=== PATIENT | male | born 1960 | race African-American/Black ===

== ENCOUNTER 2023-09-01 09:53 | Emergency (ER) | payer OTHER ==
[2023-09-01 10:05] VITALS: TEMP 98.6; BMI 24.6
[2023-09-01] MEDS ORDERED: DEXAMETHASONE 4 MG TABLET (FP) ONE (11:05)
[2023-09-01] MEDS ORDERED: LORATADINE 10 MG TABLET ONE (11:05)
[2023-09-01 11:07] LABS: EPI CELLS 8 /uL (0-25.1); HYALINE CASTS 1 /uL (0-3.1); URINE APPEARANCE CLEAR; URINE BACTERIA 72 /uL (0-1359); URINE BILIRUBIN NEGATIVE (NEGATIVE); URINE COLOR YELLOW; URINE GLUCOSE (UA) NEGATIVE (NEGATIVE); URINE KETONE NEGATIVE (NEGATIVE); URINE LEUK ESTERASE 1+ (NEGATIVE); URINE NITRITE NEGATIVE (NEGATIVE); URINE PROTEIN NEGATIVE (NEGATIVE); URINE RBC 312 /uL (0-23.9); URINE UROBILINOGEN 0.2 mg/dL (0.2-1.0); URINE WBC 111 /uL (0-25.8)
[2023-09-01] MEDS: DEXAMETHASONE 4 MG TABLET (FP) PO ONE (11:10)
[2023-09-01] MEDS: LORATADINE 10 MG TABLET PO ONE (11:10)
[2023-09-01] MEDS ORDERED: CEPHALEXIN MONOHYDRATE 500 MG CAPSULE (UD) ONE (12:55)
[2023-09-01] MEDS: CEPHALEXIN MONOHYDRATE 500 MG CAPSULE (UD) PO ONE (12:59)
[2023-09-01 14:09] VITALS: BP 119/74; PULSE 72; RESP 16
== END 2023-09-01 14:09 | disposition home or self-care (01) ==
LOC: JER 09:53
DX: K13.0 Diseases of lips (principal)
CPT/HCPCS: 81003; 87086; 87186; 99283-25

== ENCOUNTER 2023-12-11 17:32 | Emergency (ER) | payer OTHER ==
[2023-12-11 17:41] VITALS: RESP 16; TEMP 98.7; BMI 25.1
[2023-12-11 19:18] LABS: BASO % 0.2 % (0-2.0); EOS % 0.4 % (0-4.5); HEMATOCRIT 28.3 % (35.4-49); HEMOGLOBIN 9.4 GM/dL (11.7-16.9); LYMPH % 44.7 % (8-40); MCH 27.2 pg (25.7-33.7); MCHC 33.4 g/dl (32.0-35.9); MEAN CELL VOLUME 81.3 fl (80-96); MEAN PLT VOLUME 7.8 fl (7.5-11.1); MONO % 2.9 % (3.8-10.2); NEUT % 51.8 % (42.8-82.8); PLATELET COUNT 464 10^3/uL (134-434); RBC 3.48 M/mm3 (4.00-5.60); RDW 15.1 % (11.9-15.9); WHITE BLOOD COUNT 5.3 K/mm3 (4.0-10.0)
[2023-12-11 19:26] LABS: INR 1.04 (0.83-1.09); PROTHROMBIN TIME (PATIENT) 11.7 SEC (9.7-13.0)
[2023-12-11 19:40] LABS: CALCIUM 8.2 mg/dL (8.5-10.1)
[2023-12-11 19:42] LABS: ALBUMIN 3.4 g/dl (3.4-5.0); BLOOD UREA NITROGEN 22.3 mg/dL (7-18)
[2023-12-11 19:45] LABS: CREATININE 0.7 mg/dL (0.55-1.3)
[2023-12-11 19:46] LABS: BILIRUBIN,TOTAL 0.3 mg/dL (0.2-1); TOT PROT 6.6 g/dl (6.4-8.2)
[2023-12-11 19:55] VITALS: BP 122/72; PULSE 74
== END 2023-12-11 19:50 | disposition short-term general hospital (02) ==
LOC: JER 17:32
DX: R55 Syncope and collapse (principal); R94.31 Abnormal electrocardiogram [ECG] [EKG]; Z20.822 Contact with and (suspected) exposure to COVID-19
CPT/HCPCS: 36415; 71046-TC-FY; 80053; 83880; 84484; 85025; 85379; 85610; 87635; 93005; 93010; 99285-25

== ENCOUNTER 2024-10-25 06:23 | Day surgery (SDC) | payer OTHER ==
[2024-10-20 17:20] VITALS: BMI 27.4
[2024-10-25] MEDS ORDERED: PROPOFOL 20 ML ONE (08:06)
[2024-10-25] MEDS ORDERED: MIDAZOLAM HCL 2 MG/2 ML SINGLE DOSE VIAL ONE (08:06)
[2024-10-25] MEDS ORDERED: LIDOCAINE HCL 2% 100 MG/5 ML DISP.SYRIN ONE (08:10)
[2024-10-25] MEDS ORDERED: ROCURONIUM BROMIDE 50 MG/5 ML SYRINGE ONE ×2 (08:10→08:40)
[2024-10-25] MEDS ORDERED: DEXAMETHASONE SOD PHOSPHATE 4 MG/1 ML VIAL ONE (08:16)
[2024-10-25] MEDS ORDERED: ceFAZolin SODIUM 1 GM VIAL ONE (08:18)
[2024-10-25] MEDS: ceFAZolin SODIUM 1 GM VIAL IVPB ONE (08:20)
[2024-10-25] MEDS ORDERED: LABETALOL HCL 20 MG/4 ML VIAL ONE ×2 (08:40→10:56)
[2024-10-25] MEDS: BUPIVACAINE HCL/PF 0.25% (2.5MG/ML) 10 ML VIAL IJ ONE ×4 (08:42)
[2024-10-25] MEDS ORDERED: SEVOFLURANE 250 ML BTL ONE (10:02)
[2024-10-25] MEDS ORDERED: ONDANSETRON 4 MG/2 ML VIAL ONE (10:03)
[2024-10-25] MEDS ORDERED: KETOROLAC TROMETHAMINE 30 MG/1 ML VIAL ONE (10:03)
[2024-10-25] MEDS ORDERED: SUGAMMADEX SODIUM 200 MG/2 ML VIAL ONE (10:04)
[2024-10-25] MEDS ORDERED: ONDANSETRON 4 MG/2 ML VIAL IVPUSH PRN (11:15)
[2024-10-25] MEDS ORDERED: PROMETHAZINE HCL 25 MG/1 ML VIAL IVPB PRN (11:15)
[2024-10-25] MEDS ORDERED: LACTATED RINGERS SOLUTION 1,000 ML IV SCH (11:15)
[2024-10-25] MEDS: ACETAMINOPHEN 1000 MG/100 ML BAG IVPB ONE (11:30)
[2024-10-25] MEDS ORDERED: ACETAMINOPHEN INJECTION 100 ML ONE (11:32)
[2024-10-25] MEDS: oxyCODONE HCL 5 MG TABLET PO PRN ×2 (13:18→14:17)
[2024-10-25] MEDS ORDERED: oxyCODONE HCL 10 MG SUSTAINED ACTING TABLET ONE (13:19)
[2024-10-25] MEDS ORDERED: oxyCODONE HCL 5 MG TABLET ONE (14:23)
[2024-10-25 14:41] VITALS: BP 127/75; PULSE 77; RESP 20; TEMP 97.7
== END 2024-10-25 16:10 | disposition home or self-care (01) ==
LOC: JASU-SURG 06:23
PROVIDERS: ATTEND Surgery
PROC: 0DQV4ZZ Repair Mesentery, Percutaneous Endoscopic Approach (ICD-10-PCS; principal; 2024-10-25 08:00)
DX: K40.90 Unilateral inguinal hernia, without obstruction or gangrene, not specified as recurrent (principal); K43.6 Other and unspecified ventral hernia with obstruction, without gangrene; K43.9 Ventral hernia without obstruction or gangrene
CPT/HCPCS: 49591; 49650; S2900; 86850; 86900; 86901; 94760; C1781; J0131